=== PATIENT | female | born 1955 | race Caucasian/White ===

== ENCOUNTER → 2016-12-16 | Outpatient (CLI) | payer OTHER ==
[~2016-12-16] MED LIST: DICL-201 PO; HYDR-5688 PO; METO25TA3 PO; TRAM-10 PO; WARF2TAB PO
--- NOTE | 2016-12-16 16:20 | ECHOCARDIOGRAM REPORT ---
*NOTICE TO RECEIVING CONSTITUTION PARTY AGENCY This information is strictly Confidential and protected under [place] law. [place] law prohibits you from making any further disclosure of this information unless further disclosure is expressly permitted by the written consent of the person to whom it pertains or is authorized by law. A general authorization for the release of medical or other information is not sufficient for this purpose. Hospital accepts no responsibility if the information is made available to any other person, INCLUDING THE PATIENT. Interpretation Summary * Name: COSME PEDRO Study Date: 12/16/2016 12:37 PM BP: 186/95 mmHg * Patient Location: [facility] HR: 75 * : 1955 (M/d/yyyy) Gender: Female Height: 67 in * Age: 61 yrs Ethnicity: [place] Weight: 270 lb * Ordering Physician: Anna Barnett * Referring Physician: Anna Barnett * Performed By: Jane Louie RCS * * Reason For Study: PRE-OP / UNDIAGNOSED CARDIAC MURMUR * BSA: 2.3 m2 * -- Conclusions -- * There is moderate concentric left ventricular hypertrophy. * Left ventricular systolic function is normal. * Grade I diastolic dysfunction, (abnormal relaxation pattern). * Right ventricular systolic pressure is elevated at 30-40mmHg. Procedure Details * A complete two-dimensional transthoracic echocardiogram was performed (2D, M-mode, Doppler and color flow Doppler). Left Ventricle * The left ventricle is normal in size. * There is moderate concentric left ventricular hypertrophy. * Left ventricular systolic function is normal. * Ejection Fraction = 55-60%. * Grade I diastolic dysfunction, (abnormal relaxation pattern). * The left ventricular wall motion is normal. Right Ventricle * The right ventricle is normal in size and function. Atria * The left atrial size is normal. * Right atrial size is normal. Mitral Valve * The mitral valve is grossly normal. * Significant mitral regurgitation is absent. Tricuspid Valve * The tricuspid valve is not well visualized, but is grossly normal. * There is trace tricuspid regurgitation. * Right ventricular systolic pressure is elevated at 30-40mmHg. Aortic Valve * The aortic valve is normal in structure and function. * The aortic valve is trileaflet. * No hemodynamically significant valvular aortic stenosis. * There is no significant aortic regurgitation. Great Vessels * The aortic root is normal size. Pericardium/Pleural * There is no pericardial effusion. MMode 2D Measurements and Calculations Ao root diam 3.4 cm Ao root area 9.1 cm\S\2 ACS 1.9 cm LA dimension 3.2 cm LA/Ao 0.94 LVAd ap4 39.4 cm\S\2 LVLd ap4 9.4 cm EDV(MOD-sp4) 133.5 ml EDV(sp4-el) 140.0 ml LVAs ap4 28.1 cm\S\2 LVLs ap4 8.3 cm ESV(MOD-sp4) 78.0 ml ESV(sp4-el) 80.9 ml EF(MOD-sp4) 41.5 % EF(sp4-el) 42.2 % LVAd ap2 39.4 cm\S\2 LVLd ap2 8.6 cm EDV(MOD-sp2) 145.1 ml EDV(sp2-el) 152.6 ml LVAs ap2 28.1 cm\S\2 LVLs ap2 7.6 cm ESV(MOD-sp2) 81.4 ml ESV(sp2-el) 88.2 ml EF(MOD-sp2) 43.9 % EF(sp2-el) 42.2 % LVLd %diff -8.64 % EDV(MOD-bp) 144.9 ml LVLs %diff -8.88 % ESV(MOD-bp) 78.4 ml EF(MOD-bp) 45.9 % SV(MOD-sp4) 55.4 ml SI(MOD-sp4) 24.1 ml/m\S\2 SV(MOD-sp2) 63.7 ml SI(MOD-sp2) 27.7 ml/m\S\2 SV(MOD-bp) 66.5 ml SI(MOD-bp) 28.9 ml/m\S\2 SV(sp4-el) 59.1 ml SI(sp4-el) 25.7 ml/m\S\2 SV(sp2-el) 64.3 ml SI(sp2-el) 28.0 ml/m\S\2 Doppler Measurements and Calculations MV E max guillermo 81.4 cm/sec MV A max guillermo 73.9 cm/sec MV E/A 1.1 MV P1/2t max guillermo 85.4 cm/sec MV P1/2t 64.3 msec MVA(P1/2t) 3.4 cm\S\2 MV dec slope 388.9 cm/sec\S\2 MV dec time 0.26 sec Ao V2 max 191.5 cm/sec Ao max PG 14.7 mmHg Ao max PG (full) 5.4 mmHg LV V1 max PG 9.3 mmHg LV V1 max 152.1 cm/sec PA V2 max 132.0 cm/sec PA max PG 7.0 mmHg TR max guillermo 251.5 cm/sec
== END | disposition home or self-care (01) ==
LOC: C.CPL 12:20
PROVIDERS: ATTEND Nurse Practitioner
DX: Z01.818 Encounter for other preprocedural examination (principal); R01.1 Cardiac murmur, unspecified

== ENCOUNTER 2016-12-22 06:07 | Inpatient (IN) | payer OTHER ==
[2016-12-13 13:17] VITALS: BMI 42.0
--- NOTE | 2016-12-13 13:54 | PAT Medication Instructions ---
Service Date Dec 13, 2016. Current Home Medication List Diclofenac (Voltaren), 75 MG PO BID PRN for Pain Metoprolol Succ (Toprol Xl) (Toprol-Xl), 25 MG PO QAM Tramadol (Ultram), 1-2 TAB PO Q6 PRN for Pain Medication Instructions For Your Scheduled Surgery - Hold the following medications 5 days prior to surgery per surgeon's instructions: Tramadol (Ultram), 1-2 TAB PO Q6 PRN for Pain Diclofenac (Voltaren), 75 MG PO BID PRN for Pain - Take the following medications the morning of surgery with a sip of water: Metoprolol Succ (Toprol Xl) (Toprol-Xl), 25 MG PO QAM *You may take Tylenol up to four hours before surgery* If you have any questions please call us at [phone] or [phone] or [phone]
--- NOTE | 2016-12-13 14:44 | DIAGNOSTIC IMAGING REPORT ---
CHEST 2 VIEWS ROUTINE CLINICAL HISTORY: pat preoperative evaluation COMPARISON STUDY: No previous studies for comparison. FINDINGS: The bones soft tissues and hemidiaphragms are normal. The cardiomediastinal silhouette is normal. The lungs are clear. The pulmonary vasculature is normal. IMPRESSION: Negative chest. The above report was generated using voice recognition software. It may contain grammatical, syntax or spelling errors. Electronically signed by: Rico Sevilla M.D. 12/13/2016 2:43 PM Dictated Date/Time: 12/13/2016 2:43 PM
[2016-12-13 15:06] LABS: BASO % 0.3 %; BASO ABS # 0.02 K/uL (0-0.2); COMPLETE YES; EOS % 2.3 %; HEMATOCRIT 43.5 % (37-47); IG% 0.3 %; LYMPH % 32.9 %; MEAN CELL VOLUME 86.1 fL (80-100); MEAN CORPUSCULAR HEMOGLOBIN 29.3 pg (25-34); MEAN PLATELET VOLUME 10.6 fL (7.4-10.4); MONO % 8.5 %; NEUT % 55.7 %; PLATELET COUNT 240 K/uL (130-400); RED BLOOD COUNT 5.05 M/uL (4.2-5.4)
[2016-12-13 15:12] LABS: URINE APPEARANCE CLEAR (CLEAR); URINE BILIRUBIN NEG (NEG); URINE COLOR YELLOW; URINE EPITHELIAL CELL AUTO 20-30 /lpf (0-5); URINE NITRITE NEG (NEG); URINE PH 6.5 (4.5-7.5); URINE SPECIFIC GRAVITY 1.006 (1.000-1.030); UROBILINOGEN NEG (NEG); ZZUR CULT IF INDIC CLEAN CATCH NO
[2016-12-13 15:15] LABS: PARTIAL THROMBOPLASTIN RATIO 0.8; PROTHROMBIN TIME (PATIENT) 10.7 SECONDS (9.0-12.0)
[2016-12-13 15:22] LABS: MANUAL MICROSCOPIC REQUIRED? NO; REVIEW REQ? NO
--- NOTE | 2016-12-14 17:28 | HISTORY & PHYSICAL EXAMINATION ---
DATE OF ADMISSION: 12/22/2016 CHIEF COMPLAINT: Right hip pain. HISTORY OF PRESENT ILLNESS: This 61-year-old white female presents to the office with complaints of right hip pain that she has had over the last several years. It wraps in a C shape from her back to her front and extends into the upper thigh. She has lost motion. She ambulates with a cane. She has tried activity modification as well as assisted device use and oral pain medications without lasting relief. Preoperative imaging has been obtained. Pain is worse with weightbearing and is affecting her ADLs. Pain is listed as 9/10. Her accompanies her today. She elects to proceed with right total hip arthroplasty in hopes of alleviating her pain. PAST MEDICAL HISTORY: Significant for hypertension, obesity, and osteoarthritis. PREVIOUS SURGERIES: None. ALLERGIES: NKDA. CURRENT MEDICATIONS: Metoprolol 25 mg daily, tramadol 50 mg p.o. q. 6 hours p.r.n., and Voltaren 75 mg b.i.d. FAMILY HISTORY: Noncontributory. SOCIAL HISTORY: The patient is . Employed. No tobacco use. Occasional ETOH use. REVIEW OF SYSTEMS: Significant for above stated conditions, otherwise unremarkable. PHYSICAL EXAMINATION: GENERAL: Well-developed and well-nourished middle aged white female, in no acute distress. Sitting on a chair. Alert and oriented. Morbidly obese. SKIN: Warm and dry with good turgor. No rashes or lesions. No ecchymosis or erythema. HEENT: Normocephalic and atraumatic. Eyes, PERRLA and EOMI. Nares patent bilaterally without turbinate enlargement. Oropharynx without erythema or exudate. No lesions noted. Uvula midline. Oral mucosa moist. Poor dentition. Multiple teeth are missing. Multiple decayed teeth. HEART: RRR. No MGR. LUNGS: Clear to auscultation bilaterally. No crackles, rhonchi or wheezing. Good air movement. ABDOMEN: Bowel sounds present x4. Soft and nontender. Morbidly obese. MUSCULOSKELETAL: Right hip has no obvious asymmetry or deformity. She has focal discomfort with palpation over the greater trochanter and piriformis. She has very limited range of motion. Very limited internal and external rotation secondary to pain. There is also thigh pain with passive flexion. Strength is 4/5 for resisted knee extension and hip flexion. Ambulatory with a significantly antalgic gait using her cane. NEUROLOGIC: Cranial nerves II through XII are intact. Gross sensation is intact across both lower extremities by soft touch. Peripheral pulses are 2+. DATA: Radiographic imaging previously obtained shows severe end-stage DJD of the right hip. She has superior migration, significant joint space loss, intra-articular cysts, osteophytes, and marked joint space narrowing. IMPRESSION: Right hip end-stage degenerative joint disease. PLAN: The patient's operative procedure, postoperative recovery, physical therapy requirements and medication use were reviewed. Postoperative prescriptions for Percocet and Coumadin will be provided at discharge from the hospital. Anticipate discharge to home with outpatient PT. Prescriptions for physical therapy and INR have been provided. She already has a walker at home. She will obtain medical clearance from Dr. Barnett. Informed written consent will be obtained. DANIA
[~2016-12-22] VITALS: Ht 170.2 cm; Wt 122.6 kg
[2016-12-22] VITALS (8 sets, daily range): BP systolic 109–190; BP diastolic 65–84; PULSE 76–91; TEMP 36.4–37; O2SAT 96–100; Ht 170.2 cm; Wt 122.6 kg
[~2016-12-22 06:07] MED LIST changes: +CEFAZOLIN 3000 MG/65 ML D5W 65 ML IV SCH; -HYDR-5688 PO; +LACTATED RINGER'S 1000ML 1,000 ML IV SCH; +LACTATED RINGER'S 1000ML 500 ML IV ONE; +LACTATED RINGER'S 1000ML IV SCH; +ROPIVACAINE 5MG/ML 30 ML 150 MG, BUPIVACAINE/EPINEPHR 0.5% MPF 30 ML, KETOROLAC TROMETH... INFIL SCH; +TRANEXAMIC ACID INJ 1,000 MG in SODIUM CHLORIDE 0.9% 100ML 100 ML IV SCH; -WARF2TAB PO
[2016-12-22] MEDS ORDERED: BUPIVACAINE 0.5 % 5 MG/1 ML PF 10ML VIAL ONE (06:30)
--- NOTE | 2016-12-22 06:30 | History & Physical Bridge Note ---
H&P Re-Evaluation Bridge Note: I have examined the patient, reviewed the History & Physical and in the interval since the performance of the History & Physical I have noted the following changes of clinical significance: consent obtained went over list in detail.No changes noted
[2016-12-22] MEDS ORDERED: MIDAZOLAM HCL 1 MG/ML 2ML VIAL ONE ×2 (07:31→08:25)
[2016-12-22] MEDS ORDERED: EpHEDrine SULFATE INJ 50 MG/ML AMP IV PRN (08:15)
[2016-12-22] MEDS ORDERED: ONDANSETRON INJ 2 MG/ML 2 ML VIAL IV PRN ×2 (08:15→11:15)
[2016-12-22] MEDS ORDERED: ATROPINE SULFATE 0.1 MG/ML 5ML SYR IV PRN (08:15)
[2016-12-22] MEDS ORDERED: LIDOCAINE HCL 2% 2 ML VIAL (20MG/ML) ONE (08:25)
[2016-12-22] MEDS ORDERED: PROPOFOL IV EMULSION 10 MG/ML 20 ML VIAL IV ONE (08:25)
[2016-12-22] MEDS ORDERED: FENTANYL CITRATE INJ 50 MCG/1 ML 2 ML VIAL ONE ×2 (08:25→10:27)
[2016-12-22] MEDS ORDERED: POVIDONE-IODINE OP SOLN 30 ML BTL ONE (08:45)
[2016-12-22] MEDS ORDERED: ORTHO JOINT ANESTHETIC ONE (08:45)
[2016-12-22] MEDS ORDERED: EpHEDrine SULFATE 50MG/5ML SYR ONE (10:31)
[2016-12-22] MEDS ORDERED: PHENYLEPHRINE 100MCG/ML 5ML SYR ONE (10:31)
--- NOTE | 2016-12-22 10:56 | [facility] Post Operative Brief Note ---
Immediate Operative Summary Operative Date Dec 22, 2016. Pre-Operative Diagnosis Right hip end-stage degenerative joint disease Post-Operative Diagnosis Same as preop Procedure(s) Performed Right total hip arthroplasty, uncemented Surgeon Dr. Rivera Counseling Program Leader Surgeon(s) Liana Agosto PA-C; Dr. Hernandez Estimated Blood Loss 300cc Findings severe deformity/arthrofibrosis Fluids (cc crystalloids) 2200cc Specimens A: right femoral head Drains none Anesthesia spinal Complication(s) None Disposition Recovery Room / PACU
[2016-12-22] MEDS ORDERED: ALUMINUM/MAGNESIUM/SIMETH (MAALOX MAX) 30 ML UDC PO PRN (11:15)
[2016-12-22] MEDS ORDERED: MAGNESIUM HYDROXIDE SUSP 30 ML UDC PO PRN (11:15)
[2016-12-22] MEDS ORDERED: MoRPHine SULFATE 2 MG/ML CARP IV PRN (11:15)
[2016-12-22] MEDS ORDERED: METOCLOPRAMIDE HCL INJ 5 MG/ML 2 ML VIAL IV PRN (11:15)
[2016-12-22] MEDS ORDERED: DiphenhydrAMINE HCL 50 MG/ML VIAL IV PRN (11:15)
[2016-12-22] MEDS ORDERED: ACETAMINOPHEN 325 MG TAB PO PRN (11:15)
--- NOTE | 2016-12-22 11:22 | OPERATIVE REPORT ---
DATE OF OPERATION: 12/22/2016 SURGEON: Dr. Rivera. INSULATION BOARD HEAD SAW OPERATOR: Mary. SECOND INSULATION BOARD HEAD SAW OPERATOR: Triny. PREOPERATIVE DIAGNOSIS: Severe osteoarthritis with deformity, right hip. POSTOPERATIVE DIAGNOSIS: Same. OPERATION PERFORMED: Noncemented right total hip replacement. SUMMARY OF IMPLANTS: Size 52 acetabular shell sector cup hole eliminator, 6.5 x 20 screw, neutral liner 36 x 52. Tri-Lock femoral stem size 5, standard neck, and size 36, +5 head. ESTIMATED BLOOD LOSS: 300 mL. CRYSTALLOID: 2200 mL. Deep venous thrombosis prophylaxis per protocol. PERIOPERATIVE SITUATION: Medically cleared female with intractable hip pain. She is aware of her increased risk based on her overall body size. Consent was obtained, and all details in the consent. PROCEDURE: The patient appropriately identified, site verified, consent verified, 3 grams of Ancef confirmed as being given. The right lower extremity was prepped and draped in the usual routine fashion with the patient carefully placed in the left lateral decubitus position. A generous posterior approach to the hip was then made. Appropriate dissection of the flaps made. IT band and the gluteus jose a fascia then T'd, retractors placed. Care taken to protect the sciatic nerve. Short external rotators were completely scarred and deformed. There was some tendinopathy of the hip abductors, but no detachment. There was a bursa which was excised. The capsule and short external rotators needed to be excised based on the contracture, and the hip was then difficulty dislocated without injuring the femur. The femoral neck was then resected. Acetabular exposure was then obtained, labrum excised. Serial reaming carried up to a 52 and a 52 cup impacted into appropriate anteversion and inclination. There was good rim fit. An additional 6.5 x 20 screw was placed with excellent purchase. Trial liner was then seated. Minor osteophytes remaining were then removed. The femur was then delivered into the wound with flexion and internal rotation. The proximal femur prepared with box attacher, lateralizing rasp, and serial broaching up to a size 5. Size 5 was then impacted into position. Excellent fit was obtained. Trial reduction was carried out with +5 head and the leg lengths were within millimeters of equality. The hip was very stable. The hip was then dislocated. The remaining trial elements were removed. The wound irrigated with Betadine, Pulsavac, hole eliminator placed, permanent liner seated, permanent head and stem seated, hip reduced, ensuring that there was no entrapment of tissue into the cup. Hip had excellent stability. The wound was then irrigated with Betadine and Pulsavac, and closed with #2 Vicryl, 2-0 Vicryl and stainless steel clips. Appropriate dressing applied. The patient was then transferred to recovery room in satisfactory condition having tolerated the procedure well. I attest to the content of the Intraoperative Record and any orders documented therein. Any exception s are noted below.
--- NOTE | 2016-12-22 11:46 | Anesthesiology Progress Note ---
Anesthesia Post Op Note Date & Time Dec 22, 2016 at 11:46 Vital Signs Pain Intensity: 0 Vital Signs Past 12 Hours Date Time Temp Pulse Resp B/P (MAP) Pulse Ox O2 Delivery O2 Flow Rate FiO2 12/22/16 11:36 36.6 84 20 125/65 96 Nasal Cannula 2 12/22/16 11:31 86 19 127/68 96 12/22/16 11:31 87 19 12/22/16 11:26 87 19 12/22/16 11:26 87 19 121/70 94 12/22/16 11:21 95 19 129/63 95 12/22/16 11:21 95 19 12/22/16 11:16 97 17 115/69 97 12/22/16 11:16 97 17 12/22/16 11:11 36.8 102 26 116/60 97 Mask 10 12/22/16 11:11 99 27 12/22/16 11:11 98 27 116/60 97 12/22/16 06:54 36.7 76 18 190/84 100 Room Air Notes Mental Status: alert / awake / arousable, participated in evaluation Pt Amnestic to Procedure: Yes Nausea / Vomiting: adequately controlled Pain: adequately controlled Airway Patency, RR, SpO2: stable & adequate BP & HR: stable & adequate Hydration State: stable & adequate Neuraxial Anesthesia: was administered, sensory block is resolving Anesthetic Complications: no major complications apparent
[2016-12-22] MEDS: FENTANYL CITRATE INJ 50 MCG/1 ML 2 ML VIAL IV PRN ×4 (11:57→12:20)
--- NOTE | 2016-12-22 11:59 | DIAGNOSTIC IMAGING REPORT ---
PELVIS 1 OR 2 VIEW ROUTINE CLINICAL HISTORY: 61 years-old Female presenting with status post right OPAL. TECHNIQUE: Single frontal view of the pelvis was obtained. COMPARISON: None. FINDINGS: Total right hip arthroplasty with soft tissue emphysema and overlying skin josh noted. No malalignment or gross evidence of hardware complication. No fracture. Left hip joint congruent. No other osseous abnormality of the pelvis. IMPRESSION: Expected postsurgical changes status post total right hip arthroplasty. Electronically signed by: Laci Amaral M.D. 12/22/2016 11:58 AM Dictated Date/Time: 12/22/2016 11:57 AM
[2016-12-22] MEDS ORDERED: MoRPHine SULFATE 4 MG/ML 1 ML CARP\\VIAL IV PRN (13:15)
--- NOTE | 2016-12-22 13:28 | PROGRESS NOTE ---
DATE: 12/22/2016 DATE: 12/22/2016 SUBJECTIVE: Postop check status post right total hip replacement. The patient is sitting up in bed comfortably. Denies headache, chest pain, shortness of breath, fever, chills, nausea, vomiting. She is hungry, she is waiting for lunch. Vital signs are stable. She is afebrile. Postop x-rays look excellent. Wound dressing clean, dry and intact. Abdomen soft, nontender. Calves nontender. Hip motion is supple, pain free. Femoral sciatic nerve intact. ASSESSMENT: Doing well. Continue with care pathway. Hep-Lock IV if tolerates lunch after 1500 hours this afternoon.
[2016-12-22] MEDS ORDERED: D5W AND 1/2NSS + 20MEQ KCL 1,000 ML IV SCH (13:30)
[2016-12-22] MEDS: KETOROLAC TROMETHAMINE 30 MG/ML VIAL IV. SCH ×2 (13:50→18:37)
[2016-12-22] MEDS: ACETAMINOPHEN IV 1,000 MG in EMPTY BAG 0 ML IV SCH ×2 (13:50→21:59)
[2016-12-22] MEDS: OXYCODONE HCL IR 5 MG TAB (IMMEDIATE RELEASE) PO PRN (14:32)
[2016-12-22] MEDS ORDERED: TRANEXAMIC ACID INJ 1,000 MG in SODIUM CHLORIDE 0.9% 100ML 100 ML IV ONE (16:00)
[2016-12-22] MEDS ORDERED: WARFARIN SOD 5 MG TAB PO SCH (16:00)
[2016-12-22] MEDS ORDERED: WARF2TAB PO (17:06)
[2016-12-22] MEDS: FERROUS GLUCONATE 324 MG TAB PO SCH (18:28)
[2016-12-22] MEDS: CEFAZOLIN IV 2,000 MG in DEXTROSE 5% 50ML 50 ML IV SCH (18:37)
[2016-12-22] MEDS: DOCUSATE SODIUM 100 MG CAP PO SCH (21:00)
[2016-12-23] MEDS: KETOROLAC TROMETHAMINE 30 MG/ML VIAL IV. SCH ×2 (00:05→06:23)
[2016-12-23] MEDS: CEFAZOLIN IV 2,000 MG in DEXTROSE 5% 50ML 50 ML IV SCH (02:22)
[2016-12-23 03:18] VITALS: BP 132/65; PULSE 77; TEMP 36.9; O2SAT 97
[2016-12-23] MEDS: ACETAMINOPHEN IV 1,000 MG in EMPTY BAG 0 ML IV SCH (06:23)
--- NOTE | 2016-12-23 06:54 | Progress Note ---
Progress Note Date of Service Dec 23, 2016. Progress Note pod #1 no complaints of chest pain ,sob etc. calves nontender /cms intact/good quad function labs pending. doing well home today
[2016-12-23 06:57] VITALS: BP 129/64; PULSE 82; TEMP 36.9; O2SAT 94
[2016-12-23 07:22] LABS: BASO % 0.1 %; BASO ABS # 0.01 K/uL (0-0.2); COMPLETE YES; EOS % 0.3 %; HEMATOCRIT 31.4 % (37-47); IG% 0.2 %; LYMPH % 13.1 %; MEAN CELL VOLUME 86.3 fL (80-100); MEAN CORPUSCULAR HEMOGLOBIN 28.8 pg (25-34); MEAN CORPUSCULAR HGB CONC 33.4 g/dl (32-36); MEAN PLATELET VOLUME 9.3 fL (7.4-10.4); MONO % 12.3 %; PLATELET COUNT 152 K/uL (130-400); RED BLOOD COUNT 3.64 M/uL (4.2-5.4); WHITE BLOOD COUNT 9.13 K/uL (4.8-10.8)
[2016-12-23] MEDS ORDERED: DEXAMETHASONE INJ 10 MG in SYRINGE 0 ML IV ONE (07:30)
[2016-12-23 07:33] LABS: INR 1.1 (0.9-1.1)
[2016-12-23 07:57] LABS: CALCIUM 8.5 mg/dl (8.5-10.1); CREATININE 0.78 mg/dl (0.60-1.20); POTASSIUM 4.2 mmol/L (3.5-5.1)
--- NOTE | 2016-12-23 08:24 | PROGRESS NOTE ---
DATE: 12/23/2016 DATE: 12/23/2016 SUBJECTIVE: Postop day 1 status post right total hip replacement. The patient is doing reasonably well. He has no issues. Denies chest pain, shortness of breath, fever, chills, nausea, vomiting or headache. She has been ambulatory. Vital signs are stable, she is afebrile. Hematocrit stable at 31.4. INR is 1.1. Electrolytes are good. Hepatitis C screen is pending. Wound dressing clean, dry and intact. Femoral sciatic nerve is good. Hip is located. Calves nontender. Abdomen nontender. ASSESSMENT: Doing well. Plan is to continue with PT, OT. Social service assessment and discharge later today. Discharge on 4 mg of Coumadin. Check INR on Tuesday.
[2016-12-23] MEDS ORDERED: HYDR-5688 PO (08:50)
--- NOTE | 2016-12-23 08:59 | DISCHARGE SUMMARY ---
CHIEF COMPLAINT: Right hip pain. HISTORY OF PRESENT ILLNESS: The patient admitted for elective right total hip replacement. Her hospital course has been uneventful. At this point in time, she is ambulating, voiding and eating and feels well. She is requesting to go home. PAST MEDICAL HISTORY: Remarkable for hypertension, obesity, osteoarthritis. PAST SURGICAL HISTORY: None. ALLERGIES: None. PREADMISSION MEDICATIONS: Include metoprolol, tramadol, Voltaren. FAMILY HISTORY: Noncontributory. SOCIAL HISTORY: Reveals she is , employed. No tobacco or alcohol use. REVIEW OF SYSTEMS: Significant for above stated conditions. PHYSICAL EXAMINATION: Reveals hip to be located. Neurovascular check femoral sciatic nerve is normal. Hip abduction is good. Wound dressing clean, dry and intact. LABORATORY DATA: INR is subtherapeutic. Hematocrit is stable. ASSESSMENT AND PLAN: Doing well. We will discharge today after PT, OT and social service assessments. Discharge on 4 mg Coumadin daily. Check INR on Tuesday. Wound VAC dressing based on size.
[2016-12-23] MEDS ORDERED: PANTOprazole SOD 40 MG TAB PO SCH (09:00)
[2016-12-23] MEDS ORDERED: MULTIVITAMIN TAB PO SCH (09:00)
[2016-12-23] MEDS ORDERED: METOPROLOL SUCC 25MG EXT REL TAB PO SCH (09:00)
--- NOTE | 2016-12-23 09:00 | Discharge Instructions ---
Discharge Instructions Date of Service Dec 23, 2016. Admission Reason for Admission: Right Hip Osteoarthritis Discharge Discharge Diagnosis / Problem: Right hip s/p total hip replacement Discharge Goals Goal(s): Decrease discomfort, Improve function, Increase independence Activity Recommendations Activity Limitations: as noted below Lifting Limitations: gradually increase as tolerated Exercise/Sports Limitations: until after follow-up appointment Shower/Bathe: keep incision dry Driving or Machine Use: Weightbearing Status: Right weightbearing (as tolerated) . Instructions / Follow-Up Instructions / Follow-Up New Medicine: * You will likely be taking one or more of these medicines: 1. [place] - Take, as directed, when you need it, every four to six hours to control your pain. 2. Coumadin - Thins your blood to lessen the chance of forming a blood clot. The dose of this is different for each person and is based on your blood tests that are done twice a week. * The most common side effects of pain medicine and iron are nausea and constipation. If nausea or constipation is too much of a problem or if you have any questions about your new medicines or doses, call [facility] at . We will try to help you manage these issues. VERY IMPORTANT TO READ AND REVIEW" Blood Clots and Blood Thinning Medicine: * You are given Coumadin during the immediate post-operative period to lessen the risk of blood clots forming in your legs and/or lungs. Coumadin is usually given for six weeks after surgery. * The prescription is for 2 mg tablets. At discharge, you should understand your dose and take it all at the same time every day, preferably after dinner. * You need to get your blood checked 1 - 2 times per week for six weeks, or as directed. * If your dose needs to change, we will call you. Do not take your medication on the day of the blood test until we call you. * If you don't hear from us after your blood draws, keep taking the same dose. Pain: * The immediate post-operative period after hip replacement surgery is often quite painful. * You are given a prescription for pain medicine. You should take it, as directed, when you need it, especially before physical therapy and before going to bed. Pain that interferes with sleep is very common and can last several months. * You will likely need pain medicine for the first two to four weeks. It will not stop all of the pain. The pain will lessen and as you feel better, you may change to milder pain medicine such as Tylenol. * The most common side effects of pain medicine are nausea and constipation, so don't take more than you need. Physical Therapy: * Follow the "Hip Precautions Instructions." * In some cases, the psychiatric social worker supervisor at the hospital will arrange to have a therapist come to your house for the first couple of weeks to help you learn these skills. * You need to practice on your own or with the help of a family member as needed. * When you learn these skills, most of the therapy can be done on your own. Home Exercise: * You were shown a series of exercises in the hospital. Do these exercises three to four times each day including the exercises you were shown in physical therapy. Walking: * Get up and walk several times each day. For the first four weeks, try not to stand or walk for more than one hour at a time. If you do stand or walk for more than one hour, you will not hurt anything, but your leg will likely swell. * As you feel comfortable, you may change from the walker or crutches to a cane and then to independent walking. SELF CARE INSTRUCTIONS AFTER TOTAL HIP REPLACEMENT Until the incision and soft tissues around your hip have healed, there is a possibility that the hip prosthesis could dislocate. A. Observe the following precautions to prevent dislocation: 1. Don't bend your hip greater than 90 degrees. 2. Avoid crossing your legs or ankles while standing or lying. 3. Sit with your feet placed 6 inches apart. 4. When sitting, keep your knees below your hips. Sit on a firm surface, avoid deep, soft chairs and couches. Use an elevated toilet seat in the bathroom. 5. Don't bend over at the waist. Use a long handled shoehorn and a sock aid to help you put on your shoes and socks. A mill operator helper can help you rock picker objects that are too high or too low to reach. 6. Keep car riding to a minimum for at least one month after surgery. B. Your balance may be shaky for a while. Use crutches or a walker until directed by your doctor. C. Use hand rails when walking on stairs. D. Wear low heeled shoes with non-slip soles. E. Be sure that your floors are free of things that could trip you - throw rugs , electrical cords, small objects. Avoid wet and waxed floors, especially with crutches and canes. F. Try to walk several times a day with rest periods between. G. Continue with all the exercises taught to you in the hospital. Again, make walking a part of your daily routine. VERY IMPORTANT TO READ AND REVIEW A. Take Coumadin, or Lovenox (blood thinning medications) as directed by your doctor. If you are on Coumadin, have a pro-time (blood test) drawn according to your doctor's instructions. This will tell the doctor how well the Coumadin is thinning your blood. B. There are a few signs you need to watch for after you are home. If you notice any of the followin. Increased severe hip pain. Some pain is expected especially when you exercise. 2. Increased swelling in your leg or knee; pain or swelling of the calf muscle in either lower leg. 3. Any fluid drainage from the incision. 4. Shortness of breath or chest pain. TEDs/Elastic Stockings: * The white elastic stockings help limit swelling and prevent blood clots from forming in your legs. The more you wear them, the more they work. * Wear them for six weeks. Prevention of Infection: * Take antibiotics one hour before any dental cleaning, dental work, urological procedure, gastrointestinal procedure or any invasive surgery in order to prevent your new joint from getting infected. * You may get the antibiotics from the doctor performing the procedure or we will call in a prescription to the pharmacy of your choice. Call the office for a prescription at least 2 days prior to your appointment. Things to Watch For: * Drainage from the incision site that occurs more than one week after your surgery. * Severely increased leg pain or swelling. * Increased redness at the incision site. * Fever above 101 degrees Fahrenheit. * Unusual chest pain or shortness of breath. * Unusual pain or burning with urination. Current Hospital Diet Patient's current hospital diet: Regular Diet Discharge Diet Recommended Diet: Regular Diet Procedures Procedures Performed: Right total hip arthroplasty, uncemented Pending Studies Studies pending at discharge: no Medical Emergencies . Who to Call and When: Medical Emergencies: If at any time you feel your situation is an emergency, please call 911 immediately. . Non-Emergent Contact Non-Emergency issues call your: Primary Care Provider, Surgeon Call Non-Emergent contact if: temperature is above 101, wound has increased drainage, wound has increased redness, wound has increased pain . "Provider Documentation" section prepared by Reed Agosto PA-C. . VTE Core Measure Inpt VTE Proph given/why not?: Warfarin (Coumadin), T.E.D. Stockings, SCD's [place] Drug Monitoring Program Search Results: no issues identified
[2016-12-23] MEDS: DOCUSATE SODIUM 100 MG CAP PO SCH (09:15)
[2016-12-23] MEDS: FERROUS GLUCONATE 324 MG TAB PO SCH (09:15)
--- NOTE | 2016-12-23 09:40 | Orthopedic Progress Note ---
Orthopedic Progress Note Date of Service Dec 23, 2016. Subjective Post OP Day: 1 Reports: feeling well, pain controlled w PO medications, Denies: complaints, chest pain, SOB, nausea / vomiting, light headedness, calf pain Additional Notes: sitting in a chair this morning, states she has very little pain, only using tylenol. Objective calves soft nontender, N/V intact, hip located, capillary refill less than 2 sec., dressing C/D/I, incision C/D/I, A&O x3, toes mobile, CMS intact wound looks good-no active drainage Date Time Temp Pulse Resp B/P (MAP) Pulse Ox O2 Delivery O2 Flow Rate FiO2 12/23/16 06:57 36.9 82 18 129/64 (85) 94 Room Air 12/23/16 03:18 36.9 77 16 132/65 (87) 97 Room Air 12/23/16 00:05 Room Air 12/22/16 22:55 37.0 82 16 135/74 (94) 98 Room Air 12/22/16 19:40 36.8 79 18 121/68 (85) 98 Room Air 12/22/16 16:31 Room Air 12/22/16 15:40 36.7 79 18 109/65 (80) 97 Room Air 12/22/16 14:45 36.4 83 19 158/77 (104) 96 Room Air 12/22/16 13:40 91 18 158/84 (108) 98 Nasal Cannula 2.0 12/22/16 13:16 77 16 146/73 (97) 99 2.0 12/22/16 12:40 36.8 82 16 147/77 (100) 98 Nasal Cannula 2.0 12/22/16 12:40 Nasal Cannula 2.0 12/22/16 12:26 130/63 12/22/16 12:22 82 19 12/22/16 12:22 82 19 96 12/22/16 12:21 129/65 12/22/16 12:17 85 22 96 12/22/16 12:17 85 22 12/22/16 12:16 131/64 12/22/16 12:12 83 17 97 12/22/16 12:12 83 17 12/22/16 12:11 127/64 12/22/16 12:07 77 17 12/22/16 12:07 76 17 97 12/22/16 12:06 133/65 12/22/16 12:02 81 24 96 12/22/16 12:02 82 24 12/22/16 12:01 134/65 12/22/16 11:57 82 20 12/22/16 11:57 82 20 96 12/22/16 11:56 130/69 12/22/16 11:52 81 20 96 12/22/16 11:52 81 20 12/22/16 11:51 129/65 12/22/16 11:47 85 17 96 12/22/16 11:47 85 17 12/22/16 11:46 129/69 12/22/16 11:42 84 13 96 12/22/16 11:42 85 13 12/22/16 11:41 127/68 12/22/16 11:37 82 15 96 12/22/16 11:37 83 15 12/22/16 11:36 36.6 84 20 125/65 96 Nasal Cannula 2 12/22/16 11:36 125/65 12/22/16 11:32 86 17 95 12/22/16 11:32 87 17 12/22/16 11:31 86 19 127/68 96 12/22/16 11:31 87 19 12/22/16 11:26 87 19 12/22/16 11:26 87 19 121/70 94 12/22/16 11:21 95 19 129/63 95 12/22/16 11:21 95 19 12/22/16 11:16 97 17 115/69 97 12/22/16 11:16 97 17 12/22/16 11:11 36.8 102 26 116/60 97 Mask 10 12/22/16 11:11 99 27 12/22/16 11:11 98 27 116/60 97 Laboratory Results 24 Hours: Test 12/23/16 07:10 White Blood Count 9.13 K/uL Red Blood Count 3.64 M/uL Hemoglobin 10.5 g/dL Hematocrit 31.4 % Mean Corpuscular Volume 86.3 fL Mean Corpuscular Hemoglobin 28.8 pg Mean Corpuscular Hemoglobin Concent 33.4 g/dl Platelet Count 152 K/uL Mean Platelet Volume 9.3 fL Neutrophils (%) (Auto) 74.0 % Lymphocytes (%) (Auto) 13.1 % Monocytes (%) (Auto) 12.3 % Eosinophils (%) (Auto) 0.3 % Basophils (%) (Auto) 0.1 % Neutrophils # (Auto) 6.75 K/uL Lymphocytes # (Auto) 1.20 K/uL Monocytes # (Auto) 1.12 K/uL Eosinophils # (Auto) 0.03 K/uL Basophils # (Auto) 0.01 K/uL Prothromb Time International Ratio 1.1 Prothrombin Time 12.0 SECONDS Assessment & Plan Assessment: Right hip post op day 1 total hip arthroplasty Plan: PT/OT today will D/C after PT/OT to home with outpt PT coumadin per nomogram continue total hip precautions dressing changed to prevena wound vac today-wound looks very good follow up in the office in 1 week for vac removal. Discharge Planning Discharge Planning: home Pain Management: [place] DVT Prophylaxis: TEDs, SCDs, Coumadin Therapy: Physical Therapy
--- NOTE | 2016-12-23 11:05 | Anesthesiology Progress Note ---
Anesthesia Post Op Note Date & Time Dec 23, 2016 at 11:04 Vital Signs Pain Intensity: 0.0 Vital Signs Past 12 Hours Date Time Temp Pulse Resp B/P (MAP) Pulse Ox O2 Delivery O2 Flow Rate FiO2 12/23/16 10:55 36.9 82 18 94 Room Air 12/23/16 06:57 36.9 82 18 129/64 (85) 94 Room Air 12/23/16 03:18 36.9 77 16 132/65 (87) 97 Room Air 12/23/16 00:05 Room Air Notes Mental Status: alert / awake / arousable, participated in evaluation Pt Amnestic to Procedure: Yes Nausea / Vomiting: adequately controlled Pain: adequately controlled Airway Patency, RR, SpO2: stable & adequate BP & HR: stable & adequate Hydration State: stable & adequate Neuraxial Anesthesia: was administered, sensory block resolved Anesthetic Complications: no major complications apparent
[2016-12-23 11:28] VITALS: BP 165/68; PULSE 77; TEMP 36.5; O2SAT 95
[2016-12-23] MEDS: OXYCODONE HCL IR 5 MG TAB (IMMEDIATE RELEASE) PO PRN (12:23)
[2016-12-23] MEDS ORDERED: WARFARIN SOD 5 MG TAB PO SCH (16:00)
--- NOTE | 2016-12-24 14:05 | [facility] Operative Report ---
Operative Report Operative Date Dec 24, 2016. Pre-Operative Diagnosis Right hip end-stage degenerative joint disease Post-Operative Diagnosis Same as preop Procedure(s) Performed Right total hip arthroplasty, uncemented Surgeon Dr. Rivera Dining Services Manager Surgeon(s) Liana Agosto PA-C; Dr. Hernandez Estimated Blood Loss 300cc Findings Right hip DJD Fluids 2200cc Specimens A: right femoral head Drains none Anesthesia spinal Complication(s) None Disposition Recovery Room / PACU Indications This 61-year-old white female presented to the office with complaints of intractable right hip pain. She had tried conservative care measures without success. Pain was affecting her ADLs. She elected to proceed with surgical intervention after being educated about potential risks and outcomes. Description of Procedure Patient was administered a spinal anesthetic. She was then taken to the operating room where she was given sedation. She was prepped and draped in usual sterile fashion. Please see Dr. Rivera's operative report for specifics of the procedure. I was present for the entire case from initial patient positioning through final wound closure. Assistance was provided in tissue traction, hemostasis, trial implant placement, final implant placement, and final wound closure. Patient was taken to the recovery room in satisfactory condition. I attest to the content of the Intraoperative Record and any orders documented therein. Any exceptions are noted below.
== END 2016-12-23 12:25 | disposition home or self-care (01) | DRG 470 ==
LOC: C.ACU 06:07 → C.3E 06:43 → ENRESERV 12:18
PROVIDERS: ADMIT Physical Medicine & Rehabilitation Sports Medicine; ATTEND Physical Medicine & Rehabilitation Sports Medicine
PROC: 0SR90JA Replacement of Right Hip Joint with Synthetic Substitute, Uncemented, Open Approach (ICD-10-PCS; principal; 2016-12-22 08:50)
DX: M16.11 Unilateral primary osteoarthritis, right hip (principal); Z68.41 Body mass index [BMI] 40.0-44.9, adult; I10 Essential (primary) hypertension; E66.9 Obesity, unspecified

== ENCOUNTER → 2017-01-10 | Outpatient (CLI) | payer OTHER ==
[~2017-01-10] MED LIST changes: -CEFAZOLIN 3000 MG/65 ML D5W 65 ML IV SCH; -DICL-201 PO; +HYDR-5688 PO; -LACTATED RINGER'S 1000ML 1,000 ML IV SCH; -LACTATED RINGER'S 1000ML 500 ML IV ONE; -LACTATED RINGER'S 1000ML IV SCH; -ROPIVACAINE 5MG/ML 30 ML 150 MG, BUPIVACAINE/EPINEPHR 0.5% MPF 30 ML, KETOROLAC TROMETH... INFIL SCH; -TRAM-10 PO; -TRANEXAMIC ACID INJ 1,000 MG in SODIUM CHLORIDE 0.9% 100ML 100 ML IV SCH; +WARF2TAB PO
--- NOTE | 2017-01-10 09:37 | DIAGNOSTIC IMAGING REPORT ---
R TOE(S) MIN 2 VIEWS HISTORY: 61 years-old Female RIGHT GREAT TOE PAIN acute right great toe pain without known injury COMPARISON: None available TECHNIQUE: 3 views of the right great toe FINDINGS: Mild to moderate degenerative changes of the first MTP joint and interphalangeal joint noted. No acute fracture, dislocation or opaque foreign body. There is mild soft tissue swelling of the great toe. IMPRESSION: 1. Mild soft tissue swelling without acute bony abnormality. 2. Mild to moderate degenerative changes. The above report was generated using voice recognition software. It may contain grammatical, syntax or spelling errors. Electronically signed by: Brayden Chan M.D. 01/10/2017 9:36 AM Dictated Date/Time: 01/10/2017 9:34 AM
== END | disposition home or self-care (01) ==
LOC: C.RDSM 09:17
PROVIDERS: ATTEND Physician Assistant
DX: M79.674 Pain in right toe(s) (principal); M19.071 Primary osteoarthritis, right ankle and foot

== ENCOUNTER → 2017-02-03 | Outpatient (CLI) | payer OTHER ==
--- NOTE | 2017-02-03 15:30 | DIAGNOSTIC IMAGING REPORT ---
AP pelvis and right hip 2 views CLINICAL HISTORY: Postop right hip arthroplasty COMPARISON: 12/22/2016 DISCUSSION: There are postsurgical changes of a total right hip arthroplasty. No acute fractures or dislocations are visualized. Mild degenerative changes are present within the left hip. There is a stable right acetabular lucency, likely representing a pre-existing subchondral cyst. IMPRESSION: Postsurgical changes of a total right hip arthroplasty. No acute fractures or subluxations are visualized. Electronically signed by: Jorje Bonilla M.D. 02/03/2017 3:28 PM Dictated Date/Time: 02/03/2017 3:27 PM
== END | disposition home or self-care (01) ==
LOC: C.RDSM 13:58
PROVIDERS: ATTEND Physician Assistant
DX: Z96.641 Presence of right artificial hip joint (principal)